=== PATIENT | female | born 1990 | race Two or more races ===

== ENCOUNTER 2018-03-21 20:35 | Inpatient (IN) | payer MEDICAID ==
[~2018-03-21] VITALS: Ht 157.5 cm; Wt 76.7 kg
[~2018-03-21 20:35] MED LIST: LEVO-3 PO; PREN-127 PO
[2018-03-21] MEDS ORDERED: OXYTOCIN 30 UNIT/D5LR 500 ML 500 ML IV PRN (20:36)
[2018-03-21] MEDS ORDERED: FAMOTIDINE(*) 20MG/50ML PREMIX 50 ML IVPB PRN (20:36)
[2018-03-21] MEDS ORDERED: fentaNYL CITR 100 MCG/2 ML AMP IVP PRN (20:40)
[2018-03-21] MEDS ORDERED: METOCLOPRAMIDE 10 MG/2 ML SDV IVP PRN (20:40)
[2018-03-21] MEDS ORDERED: LIDOCAINE/SOD BICARB 8.4% SYR SC PRN (20:40)
[2018-03-21] MEDS ORDERED: LIDOCAINE 1% LOCAL 300 MG/30ML INJ PRN (20:40)
[2018-03-21] MEDS ORDERED: FLUSH 10 ML SYR IVP PRN (20:40)
[2018-03-21 20:56] VITALS: BP 127/86; Ht 157.5 cm; Wt 76.7 kg
[2018-03-21] MEDS: LR(*) 1000 ML BAG 1,000 ML IV PRN (21:41)
[2018-03-21 21:50] LABS: PLATELET COUNT, AUTOMATED 167 K/uL (150-450)
[2018-03-21] MEDS ORDERED: CALCIUM CARBONATE 500 MG CHEW PO PRN (21:50)
[2018-03-21] MEDS ORDERED: ACETAMINOPHEN 500 MG TAB PO PRN (21:50)
[2018-03-21] MEDS ORDERED: ZOLPIDEM TARTRATE 5 MG TAB PO PRN (21:50)
[2018-03-21] MEDS ORDERED: ONDANSETRON 4 MG/2 ML VIAL IVP PRN (21:50)
[2018-03-21] MEDS: MISOPROSTOL 25 MCG CAP PV PRN (22:37)
[2018-03-22] MEDS ORDERED: EPIDURAL KEYS XX PRN (03:07)
[2018-03-22] MEDS ORDERED: BUPIVACAINE 0.5% INJ 30ML VIAL EPI PRN (03:10)
[2018-03-22] MEDS ORDERED: LIDO/EPI 2% MPF 1:200,000 20ML EPI PRN (03:10)
[2018-03-22] MEDS ORDERED: fentaNYL CITR 100 MCG/2 ML AMP IT PRN (03:10)
[2018-03-22] MEDS ORDERED: LIDOCAINE/PF 2% 200MG/10ML AMP 200 MG/10 ML AMPUL EPI PRN (03:10)
[2018-03-22] MEDS ORDERED: FENTANYL/ROPIVACAINE 100 ML BAG EPI PRN (03:10)
[2018-03-22] MEDS ORDERED: BUPIVACAINE 0.25% MPF INJ EPI PRN (03:10)
[2018-03-22] MEDS: MISOPROSTOL 25 MCG CAP PV PRN (04:32)
[2018-03-22] MEDS ORDERED: MISOPROSTOL 25 MCG CAP PV PRN ×3 (04:35→05:00)
[2018-03-22] MEDS: LR(*) 1000 ML BAG 1,000 ML IV PRN ×2 (07:49→13:48)
--- NOTE | 2018-03-22 08:55 | History & Physical ---
History of Present Illness Age of Patient: 27 : 1 Para or TPAL: 0 EDC per LMP: Mar 22, 2018 Estimated Gestational Age: 40.0 Chief Complaint Labor induction History of Present Illness Presents for scheduled labor induction due to term and logistics. complicated by hypothyroid and controlled with medication. Otherwise, uncomplicated . Past Medical, Surgical, Family and Obstetric Histories reviewed. Please see ACOG chart. History Allergies: Coded Allergies: No Known Drug Allergies (Unverified , 03/21/18) Med Rec Home Meds Reported Medications Vits W-Ca,Fe,Fa(<1MG) ( VITAMINS) 1 Each Tablet, 1 EACH PO DAILY, TAB 02/26/18 Levothyroxine Sodium (LEVOTHYROXINE SODIUM) 100 Mcg Tablet, 112 MCG PO QDAY, TAB 02/26/18 Review of Systems All Systems Reviewed/Normal: Yes, Except as Noted Exam General Exam Vital Signs Vital Signs Date Time Temp Pulse Resp B/P (MAP) Pulse Ox O2 Delivery O2 Flow Rate FiO2 03/21/18 20:56 98.4 95 19 127/86 (100) Room Air General Apperance: Alert/Awake/No Acute Distress Neuro: No Gross deficits Eyes: Normal Extraocular Movement & Vison Cardiovascular: Regular Rate and Rhythm Respiratory: No Respiratory Distress Abdomen: Soft, Non-Tender, Non-Distended, Gravid - Non-Tender Integumentary: Skin Intact without Lesions or Rash Psychological: Alert & Oriented X3, Appropriate Mood & Affect Cervical Dialation: 2 Cervical Effacement (%): 80 Cervical Consistency: Moderate Cervical Position: Anterior Station: -2 Presentation: Vertex Fetus Heart Tone Variabilty: Moderate FHT Accelerations: 15X15 FHT Category: I Medical Decision Making Data Points Result Diagram: 03/21/182138 VTE Prophylasis: Adult Deep Vein Thrombosis/Pulmonary: No Pharmacological Contraindicati: Pt at Low Risk for VTE Mechanical Contraindications: Pt at Low Risk for VTE Assessment and Plan CARE ASST Plan: Routine Labor/Induct Care Problems: (1) 40 weeks gestation of Assessment & Plan: Received Cytotec last night and progressing. Will transition to Pitocin today and desires regional anesthesia. Expecting . (2) Hypothyroid Assessment & Plan: Continue replacement. Problem Qualifiers (1) Hypothyroid: Hypothyroidism type: acquired Qualified Codes: E03.9 - Hypothyroidism, unspecified DONNIE OJEDA MD Mar 22, 2018 08:55
--- NOTE | 2018-03-22 10:17 | Anesthesia OB Pre-Anes Eval ---
History of Present Illness Anesthesia Start Date: Mar 22, 2018 Anesthesia Start Time: 08:55 OB Anesthesia Diagnosis: induction - elective Complications: None known EDC: Mar 22, 2018 : 1 Para: 0 Vital Signs: Vital Signs Date Time Temp Pulse Resp B/P (MAP) Pulse Ox O2 Delivery O2 Flow Rate FiO2 03/21/18 20:56 98.4 95 19 127/86 (100) Room Air Pain Ratin Heart Tones: WNL Result Diagram: 03/21/18 213 Height (Inches): 62.00 Weight (Pounds): 169 BMI (kg/m2): 31 Past Medical History Medical History: no pertinent history Surgical History: no surgical history Attended Childbirth Classes?: No Hx Anesthesia Reactions: No Hx Family Anesthesia Reaction: No Current Medications: pitocin Home Meds Reported Medications Vits W-Ca,Fe,Fa(<1MG) ( VITAMINS) 1 Each Tablet, 1 EACH PO DAILY, TAB 02/26/18 Levothyroxine Sodium (LEVOTHYROXINE SODIUM) 100 Mcg Tablet, 112 MCG PO QDAY, TAB 02/26/18 Allergies: Coded Allergies: No Known Drug Allergies (Unverified , 03/21/18) Anesthesia OB ROS Neurological: No migraines/headaches, No seizures, No neuropathy ENT: Denies Tooth caps, Denies Loose teeth, Denies Chipped teeth, Denies Dentures, Denies Bridges, Denies Retainers, Denies Veneers, Denies Implants, Denies Tongue ring Pulmonary: No asthma, No smoker (pks/day/yrs) Airway Class: ll Cardiovascular ROS: No edema, No arrhythmia GI ROS: clear liquids Last Solids Date: Mar 21, 2018 Last Solids Time: 20:00 ROS: No Herpes, No STD(s), No Liver Disease, No Renal Disease Endocrine ROS: No diabetes, No gestational diabetes, No thyroid disorder Musculoskeletal ROS: No low back pain, No low back injury, No scoliosis ASA Classification: 2 Assessment and Plan Anesthesia Plan: CSE Assessment Past Medical, Surgical, Family and Obstetric Histories reviewed. Please see ACOG chart. Epidural anesthesia risks, complications and benefits explained to patient's satisfaction for labor and vaginal delivery and/or section. General anesthesia risks and benefits explained to patient's satisfaction. Questions invited, none asked. JOSÉ MIGUEL YU CRNA Mar 22, 2018 10:17
--- NOTE | 2018-03-22 10:21 | Procedure Note ---
Anesthetic Placement Note Anesthesia Plan: CSE Permit for Anesthesia Signed: Yes Anesthesia Technique: Patient Sitting Anesthesia Prep: Chlorhexidine Interspace: L 3-4 Local Anesthetic: 1% Lidocaine, 25 Gauge Needle Amount Local - cc's: 2 Anesthesia Needle: 17g Touhy/Schliff Anesthesia Attempts: 1 Loss of Resistance: Air Depth of AXEL (cm): 4 Epidural Needle Placement: No CSF, No Blood, No Parasthesia Intrathecal Needle: 27 Gauge Pencan Cerebral Spinal Fluid: Yes, Clear Catheter Insertion (cm): 6 Catheter Type: Pavon - Spring Wound Epidural Dressing: Tegaderm, Tape, Adhesive Orma Anesthesia Tray: Lot Number ([id number]), Expiration Date (2019-01-22), Reference Number ([id number]) Anesthesia Medications: Intrathecal Dose: mcg Fentanyl (15), mg Marcaine MPF (1.75), Time (09*14) Epidural Test Dose: 1.5 Lido/Epi (1:200,000), Dose - mL (2), Time (942), Negative Epidural Loading Dose: 0.2% Ropivicaine, With Fentanyl 2mcg/ml, Dose - ml (5), Time (0943) Epidural Infusion: 0.2% Ropivicaine, With Fentanyl 2mcg/ml, Start Time: (942) Epidural Pump Setting: Bolus Dose - mL (5), Lockout - Minutes (20), Maintenance Rate - mL/hr (4), Maximum per Hour - mL (19) Complications: None Comment: Great amount of support required to help pt. maintain position for CSE placement. Pt. became comfortable within 5 minutes of CSE. Mild itching noted. JOSÉ MIGUEL YU CRNA Mar 22, 2018 10:21
--- NOTE | 2018-03-22 10:23 | Anesthesia Progress Note ---
Progress/Maintenance Anesthesia Note Date: Mar 22, 2018 Anesthesia Note Time: 10:20 Pain Intensity: 0 Pump: On Pump Rate (ML/HR): 4 Sensory Level: T-12 Motor Level: Bending Knees-Bilateral Dilatation: 2 Position: Left, Tilt Assessment and Plan Assessment Pt. has been sleeping soundly. Assisted to turn onto left side. She does not notice any contractions. JOSÉ MIGUEL YU CRNA Mar 22, 2018 10:23
--- NOTE | 2018-03-22 13:05 | Anesthesia Progress Note ---
Progress/Maintenance Anesthesia Note Date: Mar 22, 2018 Anesthesia Note Time: 13:00 Pain Intensity: 6 Pump: On Pump Rate (ML/HR): 4 Sensory Level: T-12 Motor Level: Bending Knees-Bilateral, Other (both legs heavy) Dilatation: 10 Position: Semi-Fowlers Drug Bolus: 0.5% Marcaine (4 ml), Other (Fentenyl 85 mcgs) Assessment and Plan Assessment Pt. continues to breath rapid and become tense during contractions. Manual bolus of 0.5% Marcaine plain and Fentenyl. JOSÉ MIGUEL UY CRNA Mar 22, 2018 13:05
[2018-03-22] MEDS ORDERED: METHYLERGONOVINE MAL 0.2MG/ML ONE (14:50)
--- NOTE | 2018-03-22 15:08 | Anesthesia Progress Note ---
Progress/Maintenance Anesthesia Note Date: Mar 22, 2018 Anesthesia Note Time: 15:00 Pain Intensity: 0 Pump: Off Sensory Level: T-12 Motor Level: Bending Knees-Bilateral Dilatation: 10 Position: Semi-Fowlers Drug Bolus: 0.5% Marcaine (3 ml just prior to vacuuum ) Assessment and Plan Assessment Becoming ineffective with pushing, Marcaine given just prior to vacuum applied by physician. Empty syringe attached to epidural catheter and RN agrees to remove with ambulation. Patient instructed the first ambulation is to be with help of nursing staff. Instructed to preform deep knee bends at bedside before walking. Anesthesia Stop Day: Mar 22, 2018 Anesthesia Stop Time: 15:00 JOSÉ MIGUEL YU CRNA Mar 22, 2018 15:08
[2018-03-22] MEDS ORDERED: APAP/HYDROCODONE 325/5 TAB PO PRN (15:10)
[2018-03-22] MEDS ORDERED: HYDROCORTISONE 2.5% CR 30GM TB PR PRN (15:10)
[2018-03-22] MEDS ORDERED: BENZOCAINE 20% 60 ML BTL TP PRN (15:10)
[2018-03-22] MEDS ORDERED: MAGNESIUM HYDROXIDE* 30ML UDCP PO PRN (15:10)
[2018-03-22] MEDS ORDERED: LANOLIN OINT 7 GM TUBE TP PRN (15:10)
[2018-03-22] MEDS ORDERED: GLYCERIN/WITCH HAZEL LEAF 1 PK TOP PRN (15:10)
[2018-03-22] MEDS ORDERED: ACETAMINOPHEN 325 MG TAB PO PRN (15:10)
--- NOTE | 2018-03-22 15:21 | OB Delivery Note ---
Delivery Note Vaginal Delivery Type: Spont. Vaginal Delivery Delivery Date: Mar 22, 2018 Delivery Time: 14:44 Estimated Gestational Age(wks): 40 Delivery Anesthesia: Epidural Infant Sex: Female Repair Needed: Laceration, 2nd Degree Estimated Blood Loss: 400 Delivery Complications: Hemorrhage (early, resolved with methergine 0.2 mg IM x 1), Laceration Notes: Admitted for IOL due to term and logistics. Cytotec IOL last night migrated to [facility] today. Was FT dilated and by morning, 2 cm. AROM at 0815 and received epidural. Progressed rapidly from 5 cm at 1122 to completely dilated by 1230. Pushing poorly through second stage labor ultimately requiring vacuum assistance. Kiwi vacuum applied and on next contraction, suction applied and gently traction effected delivery of head immediately over second degree laceration. Thick meconium followed which was not anticipated. APGARs 7, 8. Placenta delivered spontaneously and immediate uterine atony followed which resolved with Pitocin infusion IV and methergine IM. Repair with 2-0 Chromic with good result. Locator Specialist in Attendence: No Copies to: DONNIE OJEDA MD ; DONNIE OJEDA MD Mar 22, 2018 15:21
[2018-03-22] MEDS ORDERED: LIDOCAINE 1% LOCAL 300 MG/30ML INJ ONE (15:30)
[2018-03-22] MEDS ORDERED: LIDOCAINE 1% LOCAL 300 MG/30ML 30 ML ONE (15:39)
[2018-03-22] MEDS: IBUPROFEN 800 MG TAB PO SCH (16:57)
[2018-03-22 17:11] VITALS: BP 119/82
[2018-03-22 20:00] VITALS: BP 125/88
[2018-03-22] MEDS: DOCUSATE CALCIUM 240 MG CAP PO SCH (23:04)
[2018-03-22 23:05] VITALS: BP 115/78
[2018-03-23] MEDS: IBUPROFEN 800 MG TAB PO SCH ×3 (00:46→17:16)
[2018-03-23 03:50] VITALS: BP 118/75
[2018-03-23 09:05] VITALS: BP 134/76
[2018-03-23] MEDS: DOCUSATE CALCIUM 240 MG CAP PO SCH (09:10)
--- NOTE | 2018-03-23 09:57 | Anesthesia Post Eval Note ---
Anesthesia Post Eval Note Vital Signs Date Time Temp Pulse Resp B/P (MAP) Pulse Ox O2 Delivery O2 Flow Rate FiO2 03/23/18 09:05 97.6 93 18 134/76 (95) 03/23/18 05:40 Room Air 03/22/18 17:11 93 Pt able to participate in Eval: Yes Cardiovascular Status: Satisfactory Respiratory Status: Satisfactory Pain Managment: Satisfactory PO Nausea/Vomiting: Satisfactory Temperature Management: Satisfactory Mental Status: Satisfactory, Alert, Oriented X3 Post-Op Hydration Status: Satisfactory, Tolerating PO Well, Voiding w/o Dif ficulty Anesthesia Type: CSE Anesthesia Tolerance: Tolerated procedure well without apparent anesthetic complications. LP site clear, no redness or edema. Denies headache or any residual paresthesia. Vital Signs Stable, Patient comfortable and condition stable. JOSÉ MIGUEL YU CRNA Mar 23, 2018 09:57
--- NOTE | 2018-03-23 10:49 | OB/GYN Progress Note ---
OB Subjective Progress Notes Subjective 27 yo female day #1 s/p vaginal delivery. She was admitted for IOL due to term. Pushing poorly through second stage labor ultimately requiring vacuum assistance. Delivered over second degree laceration. Doing well this morning. Pain controlled. Moderate vaginal bleeding. Voiding well. Breast feeding infant. GI: NEG Nausea, NEG Vomiting, NEG Flatus : Voiding Well, Vaginal Bleeding, Moderate Pain: Moderate, Tolerating PO Pain Meds Neurological: No Headache OB Objective Physical Exam Vital Signs Date Time Temp Pulse Resp B/P (MAP) Pulse Ox O2 Delivery O2 Flow Rate FiO2 03/23/18 09:05 97.6 93 18 134/76 (95) 03/23/18 05:40 Room Air 03/22/18 17:11 93 Intake and Output 03/23/18 06:59 Intake Total 3395 ml Output Total 1350 ml Balance 2045 ml Intake Oral 480 ml IV Total 2915 ml Output Urine Total 1350 ml # Voids 5 General Appearance: Alert/Awake/No Acute Distress Neurological: No Gross deficits Eyes: Normal Extraocular Movement & Vison Respiratory: No Respiratory Distress Abdomen: Bowel Sounds Present, Fundus Firm, Other (Soft) Integumentary: Skin Intact without Lesions or Rash Psychological: Alert & Oriented X3, Appropriate Mood & Affect Result Diagram: 03/23/18 0640 Assessment and Plan Post Day: 1 ECONOMIC ANALYST Assessment: Stable ECONOMIC ANALYST Plan: Routine Post- Care, Discharge Home Today Problems: (1) 40 weeks gestation of (2) Hypothyroid (3) state Assessment & Plan: Doing well day #1. Motivated to discharge home today. Plan to d/c if no issues and cleared by peds. Follow-up in office in 6 weeks. Sooner as needed. Problem Qualifiers (1) Hypothyroid: Hypothyroidism type: acquired Qualified Codes: E03.9 - Hypothyroidism, unspecified KENDRA REYES Mar 23, 2018 10:49
[2018-03-23] MEDS ORDERED: IBUP800T37 PO (10:50)
[2018-03-23] MEDS ORDERED: DOCU-416 PO (10:50)
--- NOTE | 2018-03-23 10:54 | OB/GYN Discharge Summary ---
Discharge Summary Reason for Hosp/Final Diag: (1) 40 weeks gestation of (2) Hypothyroid (3) state Hospital Course & Plan: 27 yo female day #1 s/p vaginal delivery. She was admitted for IOL due to term. Pushing poorly through second stage labor ultimately requiring vacuum assistance. Delivered over second degree laceration. Doing well day #1. Motivated to discharge home today. Plan to d/c if no issues and cleared by peds. Follow-up in office in 6 weeks. Sooner as needed. Lates Vital Signs Vital Signs Date Time Temp Pulse Resp B/P (MAP) Pulse Ox O2 Delivery O2 Flow Rate FiO2 03/23/18 09:05 97.6 93 18 134/76 (95) 03/23/18 05:40 Room Air 03/22/18 17:11 93 Weight (Pounds): 169 Result Diagram: 03/23/18 0640 Condition: Improved Discharge: Home, Self Shelter Meds Reported Medications Vits W-Ca,Fe,Fa(<1MG) ( VITAMINS) 1 Each Tablet, 1 EACH PO DAILY, TAB 02/26/18 Levothyroxine Sodium (LEVOTHYROXINE SODIUM) 100 Mcg Tablet, 112 MCG PO QDAY, TAB 02/26/18 [phone], Dr. Valle [phone] Follow up in: 6 wks PP or PO Discharge Diet: As Tolerates Discharge Activity: As Tolerates Problem Qualifiers (1) Hypothyroid: Hypothyroidism type: acquired Qualified Codes: E03.9 - Hypothyroidism, unspecified KENDRA REYES Mar 23, 2018 10:54
[2018-03-24] MEDS ORDERED: INFLUENZA VIRUS VAC 0.5ML SYR IM ONLY ONE (09:00)
[2018-03-24] MEDS ORDERED: MEASLES,MUMP,RUBELLA VAC 0.5ML SUBQ ONE (09:00)
[2018-03-24] MEDS ORDERED: DIPHTH/TETANUS/ACEL. PERTUSSIS IM ONLY ONE (09:00)
== END 2018-03-23 19:20 | disposition home or self-care (01) | DRG 806 ==
LOC: OB 20:35
PROVIDERS: ADMIT Obstetrics & Gynecology; ATTEND Obstetrics & Gynecology
PROC: 10D07Z6 Extraction of Products of Conception, Vacuum, Via Natural or Artificial Opening (ICD-10-PCS; principal; 2018-03-22)
PROC: 0KQM0ZZ Repair Perineum Muscle, Open Approach (ICD-10-PCS; 2018-03-22)
PROC: 3E0P7VZ Introduction of Hormone into Female Reproductive, Via Natural or Artificial Opening (ICD-10-PCS; 2018-03-22)
PROC: 3E0334Z Introduction of Serum, Toxoid and Vaccine into Peripheral Vein, Percutaneous Approach (ICD-10-PCS; 2018-03-23)
DX: O99.284 Endocrine, nutritional and metabolic diseases complicating childbirth (principal); O36.0130 Maternal care for anti-D [Rh] antibodies, third trimester, not applicable or unspecified; Z37.0 Single live birth; E03.9 Hypothyroidism, unspecified; Z3A.40 40 weeks gestation of pregnancy; O70.1 Second degree perineal laceration during delivery; O77.0 Labor and delivery complicated by meconium in amniotic fluid; O67.9 Intrapartum hemorrhage, unspecified
CPT/HCPCS: 36415; 85025; 85027; 85461; 86703; 86850; 86900; 86901; J2001; J2210; J2405; J2590; J2791; J7120

== ENCOUNTER → 2018-07-15 | Outpatient (REF) ==
[2018-03-21 20:56] VITALS: BMI 30.9
[~2018-07-15] MED LIST changes: +DOCU-416 PO; +IBUP800T37 PO
--- NOTE | 2018-07-15 11:48 | RADIOLOGY IMAGING REPORT ---
FACILITY: [facility] PATIENT NAME: Fco Pop : 1990 MR: [id number] V: [id number] EXAM DATE: ORDERING PHYSICIAN: LUZ BROWNE TECHNOLOGIST: Location: [facility] Patient: Fco Pop : 1990 Visit/Account:[id number] Date of Sevice: 07/15/2018 Exam type: EXTREMITY NON-VASCULAR RIGHT History: Palpable mass in right arm. Comparison: None. Findings: In the superior medial aspect of the right upper arm adjacent to the axilla there is a complex mass c ontaining multiple small cystic components interspersed through echogenic striations. There is also internal vascularity. This mass is of uncertain etiology but does not appear to represent a lymph no de or a lipoma. In the right axilla there are two fatty replaced lymph nodes largest measuring 1.7 x 0.5 x 0.9 cm tissue in the right axilla also appears slightly edematous IMPRESSION: 1. The superior medial aspect right upper arm adjacent to the axilla there is a complex partially cy stic partially solid hypervascular mass of uncertain etiology. This does not appear to represent a l ymph node or a lipoma. Further evaluation with MR may be helpful Report Dictated By: Matilde Dawson MD at 07/15/2018 11:41 AM Report E-Signed By: Matilde Dawson MD at 07/15/2018 11:43 AM WSN:[email or web address]
--- NOTE | 2018-07-15 11:50 | RADIOLOGY IMAGING REPORT ---
FACILITY: [facility] PATIENT NAME: Fco Pop : 1990 MR: [id number] V: [id number] EXAM DATE: ORDERING PHYSICIAN: LUZ BROWNE TECHNOLOGIST: Location: [facility] Patient: Fco Pop : 1990 Visit/Account:[id number] Date of Sevice: 07/15/2018 THYROID HISTORY: Thyroidism, currently on levothyroxine COMPARISON: None. FINDINGS: SIZE: Normal. Right lobe: 4.7 x 1.2 x 1.1 cm Left lobe: 4.2 x 0.9 x 0.8 cm Isthmus: 9 mm PARENCHYMA: Homogeneous. NODULES: Right lobe: * None discrete. Left lobe: * None discrete. Isthmus: * None discrete. VASCULARITY: Within normal limits. ADDITIONAL FINDINGS: In zone three on the right lateral to the right internal carotid artery and jugu lar vein is a solid hypoechoic relatively well-circumscribed mass measuring 2.1 x 1.3 x 1.6 cm. This does not appear to represent a lymph node IMPRESSION: Solid 2.1 x 1.3 x 1.6 cm hypoechoic mass in zone three on the right lateral to the right internal car otid artery and jugular vein of uncertain etiology.. This could be further evaluated with CT of the neck with contrast REFERENCE: 2015 [place] [employer] Management Guidelines for Adult Patients with Thyroid Nodules and D ifferentiated Thyroid Cancer: The [place] [employer] Guidelines Task Force on Thyroid Nodul es and Differentiated Thyroid Cancer. SONOGRAPHIC PATTERNS: * Benign: Purely cystic nodules (no solid component); estimated risk of malignancy <1 percent; no bi opsy recommended. * Very Low Suspicion: Spongiform or partially cystic nodules without any of the sonographic features described in low, intermediate, or high suspicion patterns; estimated risk of malignancy <3 percent; consider FNA at > 2 cm (Observation without FNA is also a reasonable option). * Low Suspicion: Isoechoic or hyperechoic solid nodule, or partially cystic nodule with eccentric so lid areas, without microcalcification, irregular margin or ETE (extra-thyroidal extension), or taller than wide shape; estimated risk of malignancy 5-10 percent; recommend FNA at >1.5 cm. * Intermediate Suspicion: Hypoechoic solid nodule with smooth margins without microcalcifications, E TE (extra-thyroidal extension), or taller than wide shape; estimated risk of malignancy 10-20 percent ; recommend FNA at > 1 cm. * High Suspicion: Solid hypoechoic nodule or solid hypoechoic component of a partially cystic nodule with one or more of the following features: irregular margins (infiltrative, microlobulated), microc alcifications, taller than wide shape, rim calcifications with small extrusive soft tissue component, evidence of ETE (extra-thyroidal extension); estimated risk of malignancy >70-90 percent; recommend FNA at > 1 cm. NOTES: * Although a sonographically suspicious subcentimeter thyroid nodule without evidence of extrathyroi tamie extension or sonographically suspicious lymph nodes may be observed with close sonographic follow -up rather than pursuing immediate FNA, patient age and preference may modify decision-making. A > 50% interval increase in nodule volume and/or development of new suspicious sonographic features are felt to be a valid reasons for potential re-aspiration of a nodule previously shown to have benig n FNA cytology. Report Dictated By: Matilde Dawson MD at 07/15/2018 11:43 AM Report E-Signed By: Matilde Dawson MD at 07/15/2018 11:46 AM WSN:[email or web address]
== END ==
LOC: RAD 10:09
PROVIDERS: ATTEND Emergency Medicine
DX: R22.31 Localized swelling, mass and lump, right upper limb (principal)
CPT/HCPCS: 76536; 76881

== ENCOUNTER → 2018-07-20 | Outpatient (REF) ==
[2018-03-21 20:56] VITALS: BMI 30.9
--- NOTE | 2018-07-20 15:11 | RADIOLOGY IMAGING REPORT ---
FACILITY: [facility] PATIENT NAME: Fco Pop : 1990 MR: [id number] V: [id number] EXAM DATE: ORDERING PHYSICIAN: KISHA PHILLIP TECHNOLOGIST: Location: [facility] Patient: Fco Pop : 1990 Visit/Account:[id number] Date of Sevice: 07/20/2018 EXAMINATION: CT neck with IV contrast HISTORY: Lateral neck mass seen on ultrasound 07/15/2018, right axillary mass TECHNIQUE: CT was obtained through the neck following IV contrast administration. Sagittal and co vianey reformatted images were generated. 75 mL of IV Isovue-370 injected. One of the following dose optimization techniques was utilized in the performance of this exam: autom ated exposure control; adjustment of the mA and/or kV according to patient size; or use of iterative reconstruction technique. Specific details can be referenced in the facility's radiology CT exam ope rational policy. COMPARISON: None. FINDINGS: Parotid/submandibular and thyroid glands: Normal. Pharyngeal and retropharyngeal soft tissues: Normal. Oral cavity and music artist space soft tissues: Normal. Larynx/glottis and airway: Normal. Lymph nodes: Low-density circumscribed lesion within the right level four region just posterior to th e internal jugular vein measures 1.4 x 1.2 cm transverse by 2.1 cm craniocaudad. Hounsfield units wit hin this structure measure -38. There is a rind of tissue surrounding this finding which is favored r epresent paraspinal musculature. Mildly enlarged lymph node adjacent to the posterior right trachea in the lower right neck measures 9 mm AP dimension, axial image 27. This is at the level of the lower thyroid gland. Vessels: No significant finding. Visualized orbits / brain: No significant finding. Upper chest: Nonspecific 4 mm peripheral left upper lobe nodule, image 59. Bones/sinuses/mastoid air cells: Normal. IMPRESSION: 1. 1.4 x 1.2 x 2.1 cm low-density ovoid lesion in the right level four region just posterior to the internal jugular vein appears to be positioned within the right lateral paraspinal musculature. This may represent a benign lipoma given low density. This could alternatively represent an epidermo id or dermoid. A low-density cystic nonspecific pathologic lymph node cannot be entirely excluded. Recommend neck MR without and with contrast for further characterization to confirm a fatty mass and exclude suspicious solid component as well as to confirm this finding is surrounded by paraspinal mus culature. 2. Nonspecific mildly enlarged possibly reactive lymph node in the lower neck paratracheal region. 3. Otherwise unremarkable neck CT. Report Dictated By: Jose Rafael Olson MD at 07/20/2018 2:35 PM Report E-Signed By: Jose Rafael Olson MD at 07/20/2018 3:05 PM WSN:[id number]
--- NOTE | 2018-07-20 17:32 | RADIOLOGY IMAGING REPORT ---
FACILITY: [facility] [place] PATIENT NAME: Fco Pop : 1990 MR: [id number] V: [id number] EXAM DATE: ORDERING PHYSICIAN: KISHA PHILLIP TECHNOLOGIST: Location: [facility] [place] Patient: Fco Pop : 1990 Visit/Account:[id number] Date of Sevice: 07/20/2018 CT CHEST (CONTRAST) History: Right axillary mass TECHNIQUE: Contiguous axial images were performed through the chest to the level of the adrenal gla nds following the administration of IV contrast. Coronal and sagittal reformatting was also perform ed.Dose Lowering Technique One of the following dose optimization techniques was utilized in the performance of this exam: Autom ated exposure control; adjustment of the mA and/or kV according to the patient's size; or use of an i terative reconstruction technique. Specific details can be referenced in the facility's radiology C T exam operational policy. Contrast: 75 mL Isovue-370 COMPARISON STUDIES: CT of the neck performed today. Lungs / Pleura: In the medial superior aspect of the left lower lobe there is a 2.4 x 1.1 x 3.6 cm multiseptated air cyst possibly representing a pneumatocele or bulla. There is no evidence of pulmon niesha infiltrates or pleural effusions Mediastinum/nodes: There Is 1.2 x 1 cm left hilar lymph node. There is a 1.5 x 1.2 cm right hilar ly mph node. There are several bilateral axillary lymph nodes the largest on the right measures 1.2 x 1 .1 x 2.2 cm is eccentric fatty hilum the largest on the left measures 1 x 0.7 x 1.7 cm Heart and vessels: negative. Musculoskeletal / Body wall: negative. Upper abdomen: Spleen is incompletely imaged although appears prominent measuring approximately 14. 3 cm in AP dimension IMPRESSION: Mild bilateral hilar lymph nodes. There are several axillary lymph nodes noted as well the largest o n the right measuring 1.2 x 1.1 x 2.2 cm an eccentric fatty hilum. This may simply be reactive altho ugh clinical follow-up suggested The spleen is incompletely shoulder appears prominent therefore follow-up needed The medial superior aspect left lower lobe is a septated air cyst which may represent a pneumatocele or bulla Report Dictated By: Matilde Dawson MD at 07/20/2018 4:47 PM Report E-Signed By: Matilde Dawson MD at 07/20/2018 5:27 PM WSN:[email or web address]
== END ==
LOC: CT 00:20
PROVIDERS: ATTEND Family Medicine
DX: R22.1 Localized swelling, mass and lump, neck (principal); R22.31 Localized swelling, mass and lump, right upper limb
CPT/HCPCS: 70491; 71260; Q9967

== ENCOUNTER → 2018-08-11 | Outpatient (REF) ==
[2018-03-21 20:56] VITALS: BMI 30.9
[~2018-08-11] MED LIST changes: +GADOBENATE 529MG/1ML 15ML VIAL IVP ONE
--- NOTE | 2018-08-11 13:56 | RADIOLOGY IMAGING REPORT ---
FACILITY: [facility] PATIENT NAME: Fco Pop : 1990 MR: [id number] V: [id number] EXAM DATE: [id number] ORDERING PHYSICIAN: ENRIKE ROBISON TECHNOLOGIST: Location: [facility] Patient: Fco Pop : 1990 Visit/Account:[id number] Date of Sevice: 08/11/2018 Study: MR FACE NECK ORBIT W & W/O CON Indication: Right-sided neck mass Comparison study: None available Findings: Multiplanar MRI sequences were obtained through the neck before and after the administratio n of 14 mL MultiHance gadolinium contrast. The examination is compared to a previous CT scan dated July 20, 2018 The examination demonstrates the presence of a fat signal intensity mass present within the right lev el IV region. This measures 1.4 x 1.4 x 2.4 cm. This lesion is appears to be fatty in nature, however , it does not saturate out completely on the STIR sequences. There is a enhancing margin to the lesio n. This lesion does not represent a simple lipoma and may represent a mesenchymal neoplasm with fatty elements. A surgical consult is recommended for further evaluation of this finding. There is no significant cervical adenopathy identified. The parotid and submandibular glands are unremarkable. There is no evidence of abnormality of the thy roid gland. The tongue base and floor of mouth are unremarkable. There is no evidence of abnormality of the airwa y. IMPRESSION: 1.4 x 1.4 x 2.4 cm fat-containing lesion present within the right level IV region. This l esion has an enhancing rim and is well as signal characteristics do not represent pure fat. This lesi on may represent a mesenchymal neoplasm with fatty characteristics. Surgical consult is recommended f or further evaluation of this finding. Report Dictated By: Devin Nuñez at 08/11/2018 1:20 PM Report E-Signed By: Devin Nuñez at 08/11/2018 1:51 PM WSN:[id number]
== END ==
LOC: MRI 08:00
PROVIDERS: ATTEND Nurse Practitioner
DX: R22.1 Localized swelling, mass and lump, neck (principal)
CPT/HCPCS: 70543; A9577